=== PATIENT | female | born 1980 ===

== ENCOUNTER 2017-01-26 13:06 | Day surgery (SDC) | payer MEDICARE, MEDICAID ==
[2017-01-26 13:35] VITALS: BMI 36.6
[2017-01-26] MEDS ORDERED: Midazolam 2 MG/2 ML VIAL ONE (15:39)
[2017-01-26] MEDS ORDERED: Propofol 10 mg/ml Inj (20 ML) ONE (15:39)
--- NOTE | 2017-01-26 15:48 | CP.SDSHP ---
Same Day Surgery H & P - History Proposed Procedure: EGD Pre-Op Diagnosis: Esophageal reflux and esophagitis - Previous Medical/Surgical History Comments: Depression, GERD, MS, SLE Previous Surgical History: podiatry, CS, Cholecystectomy - Allergies Allergies: Allergies No Known Allergies Allergy (Verified 01/02/16 23:55) - Current Medications Current Medications: reviewed - Physical Exam General Appearance: wdwn nad Vital Signs: Vital Signs 01/26/17 01/26/17 13:35 15:42 Temperature 97.3 F L 97.3 F L Pulse Rate 71 112 H Respiratory 18 18 Rate Blood Pressure 107/71 118/68 O2 Sat by Pulse 99 100 Oximetry Mental Status: Alert & Oriented x3 Heart: WNL Lungs: WNL GI: WNL - {Optional Preform as Required} Abdomen: WNL - Impression Impression: GERD Pt. Evaluated Today:Candidate for Anesthesia & Procedure: Yes - Date & Time Date: 01/26/17 Time: 15:47 Short Stay Discharge - Short Stay Discharge Admitting Diagnosis/Reason for Visit: GASTRO-ESOPHAGEAL REFLUX DISEASE WITHOUT ESOPHAGIT Disposition: HOME/ ROUTINE
[2017-01-26 16:14] VITALS: TEMP 97.8
[2017-01-27 07:27] VITALS: BP 132/66; PULSE 78; RESP 16; O2SAT 99
== END 2017-01-26 16:55 | disposition home or self-care (01) ==
LOC: C.ENDO 13:06
PROVIDERS: ATTEND Internal Medicine Gastroenterology
DX: K31.7 Polyp of stomach and duodenum (principal); K21.9 Gastro-esophageal reflux disease without esophagitis; K29.70 Gastritis, unspecified, without bleeding; K20.9 Esophagitis, unspecified
CPT/HCPCS: 43270; 84703; 88305; 88342; J2001; J2250; J2704